=== PATIENT | male | born 1955 | race Hispanic/Latino ===

== ENCOUNTER 2018-01-09 05:59 | Day surgery (SDC) | payer BC ==
[2017-12-31 10:49] VITALS: BMI 28.4
--- NOTE | 2018-01-09 06:51 | CP.PCM.PN ---
Subjective - Date & Time of Evaluation Date of Evaluation: 01/09/18 Time of Evaluation: 06:46 - Subjective Subjective: Podiatry progress note for attending Dr. Alfonso: 62 y/o M patient with PMH of HTN seen and evaluated at the bedside preoperative for Left hAV and hammer toe correction surgery. Patient states that he has this problem in his foot since long time and it bothers him as his left great toe is overlapping the left 2nd toe. Patient is aware of the surgery. Patient confirmed his NPO status. Patient denies any recent F/N/V/C or SOB. Patient took his blood pressure pill today 4.30 am. PMH: HTN PSH: Hydrocele twice Allergies: Iodine, Penicillins Social Hx: Denies smoking, ETOH socially and denies illicit drug use. Objective - Vital Signs/Intake and Output Vital Signs (last 24 hours): Temp Pulse Resp BP Pulse Ox 97.7 F 86 18 153/93 H 95 01/09/18 06:40 01/09/18 06:40 01/09/18 06:40 01/09/18 06:40 01/09/18 06:40 - Constitutional Appears: Well, Non-toxic, No Acute Distress - Head Exam Head Exam: ATRAUMATIC, NORMOCEPHALIC - Extremities Exam Additional comments: Left LE focused exam: Vasc: DP/PT 2/4, Cap refill < 3 sec in all digits. Temp gradient warm to cool from proximal to distal. No edema. Neuro: Gross and protective sensations are intact. Derm: No open lesions, No clinical signs of infection. MSK: HAV deformity. HT from 2 to 5. Tailor's bunion. 2nd toe overlapping 1st toe. Muscle power intact 5/5 in all groups. - Neurological Exam Neurological Exam: Alert, Awake, Oriented x3 - Psychiatric Exam Psychiatric exam: Normal Affect, Normal Mood Assessment and Plan - Assessment and Plan (Free Text) Assessment: 62 y/o M patient seen and evaluated in the bedside preoperative for left HAV and HT correction surgery. Plan: Pt was seen and examined in SDS Pt NPO status was confirmed All pre-op testing and clearance in chart Pt has exhausted all conservative treatment at this time and is opting for surgical intervention Pt was explained procedure and post-operative course All pt's questions were answered to satisfaction No guarantees were made Pt understands all risks, benefits and complications of procedure Pt will follow-up with Dr. Alfonso within 1 week of surgery
[2018-01-09] MEDS ORDERED: Lidocaine 2% Inj (20ml) INFIL ONE (06:55)
[2018-01-09] MEDS ORDERED: Bupivacaine 0.5% 50 ML IJ ONE (06:55)
[2018-01-09] MEDS ORDERED: Clindamycin 600mg/50ml NS 600 MG/50 ML BAG IVPB ONE (06:55)
[2018-01-09] MEDS ORDERED: Succinylcholine 200 mg/10 ml Inj IV ONE (07:14)
[2018-01-09] MEDS ORDERED: ePHEDrine 50 mg/ml Inj ONE (07:14)
[2018-01-09] MEDS ORDERED: Rocuronium 10 mg/ml (5 ml) ONE (07:14)
[2018-01-09] MEDS ORDERED: Midazolam 2 MG/2 ML VIAL ONE ×2 (07:14→11:20)
[2018-01-09] MEDS ORDERED: Phenylephrine 10 mg/ml Inj ONE (07:14)
[2018-01-09] MEDS ORDERED: Propofol 10 mg/ml Inj (20 ML) ONE ×3 (07:14→11:53)
[2018-01-09] MEDS ORDERED: Sodium Chloride 0.9% 10 ML IV ONE (07:17)
[2018-01-09] MEDS ORDERED: Lactated Ringer's 1,000 ML IV ONE ×2 (07:50→08:43)
--- NOTE | 2018-01-09 08:19 | CP.SDSHP ---
Same Day Surgery H & P - History Proposed Procedure: Left HAV, Left 2nd HT correction Pre-Op Diagnosis: Left HAV, Left 2nd HT. - Previous Medical/Surgical History Cardiac: Hypertension Previous Surgical History: Hydrocele twice, renal stone surgery - Allergies Allergies: Allergies iodine Allergy (Intermediate, Verified 01/09/18 06:18) SWELLING Penicillins Allergy (Verified 01/09/18 06:18) RASH - Physical Exam Vital Signs: Vital Signs 01/09/18 01/09/18 06:40 06:46 Temperature 97.7 F Pulse Rate 86 86 Respiratory 18 Rate Blood Pressure 153/93 H O2 Sat by Pulse 95 Oximetry - {Optional Preform as Required} Integument: Other (Left HAV, Left HT 2-5> MMT 5/5 in all groups) - Impression Pt. Evaluated Today:Candidate for Anesthesia & Procedure: Yes - Date & Time Date: 01/09/18 Time: 07:10 Short Stay Discharge - Short Stay Discharge Admitting Diagnosis/Reason for Visit: M20.12,M20.42 Disposition: HOME/ ROUTINE Additional Instructions (Diet, Activity): -Patient in good/stable condition for discharge home -Pt to resume medications per medical reconciliation -Resume regular diet -Please keep dressing clean, dry, & intact to surgical site -Use plastic bag over bandage for showering -Wear post op shoe at all times when ambulating -Call clinic if you see signs of infection (redness, swelling, malodor) -Please make an appointment to see Dr. Alfonso in office/clinic within 1 week for post-op check Progress Note/Discharge Note with Instructions: - Patient evaluated bedside in recovery s/p Left HAV, L 2nd HT correction. - After surgical procedure patient in NAD. - (+) Void, (+) Appetite. - Capillary refill time <3s and NVS intact. - Patient denies complaints at this time. - Post operative instructions and plan of care explained to patient at length. - Patient. acknowledges verbal understanding. - Patient stable for DC per podiatric surgery.
[2018-01-09] MEDS: Bupivacaine HCl 0.5% PF (30 ml) Inj ONE ×2 (10:28→10:44)
[2018-01-09] MEDS ORDERED: Oxycodone/Acetaminophen 5/325 mg Tab PO PRN ×2 (10:57)
--- NOTE | 2018-01-09 11:02 | PCM.SURG1 ---
Surgeon's Initial Post Op Note - Surgeon's Notes Surgeon: Dr. Alfonso Director Of Religious Life: Dr.Lara Garcia PGY-3, Dr. Jonelle Martinez PGY-2 Type of Anesthesia: General LMA, Local Anesthesia Administered By: Dr. Good Pre-Operative Diagnosis: left foot hallux abductovalgus deformity, 2nd digit hammertoe deformity, plantarflexed 2nd metatarsal Operative Findings: I: 15cc 2% Lidocaine plain pre-op, 10cc 0.5% Marcaine plain post-op. M: 2-0 Vicryl, 3-0Vicryl, 4-0 Vicryl, 4-0 Nylon, Arthrex 3-0 cannulated screw, [employer] BME staple, [employer] snap-off 2.0 screw Post-Operative Diagnosis: same Operation Performed: left foot Wilbert bunionectomy, Leandro osteotomy, Aura osteotomy of 2nd metatarsal, 2nd PIPJ arthrodesis with K-wire fixation Specimen/Specimens Removed: 1st metatarsal bone Estimated Blood Loss: EBL {In ML}: 15 Blood Products Given: N/A Drains Used: No Drains Post-Op Condition: Good Date of Surgery/Procedure: 01/09/18 Time of Surgery/Procedure: 11:04
[2018-01-09 14:18] VITALS: PULSE 80; RESP 18; TEMP 97
[2018-01-09 15:58] VITALS: BP 126/78; O2SAT 95
--- NOTE | 2018-01-12 14:38 | RAD ---
Date of service: 01/09/2018 PROCEDURE: Left Foot Radiographs. HISTORY: s/p bunion surgery COMPARISON: None. FINDINGS: BONES: Status post arthrodesis with a solitary wire traversing the entire left 2nd digit as a as well as the head of the 2nd metatarsal bone through the 2nd metatarsal phalangeal joint. Further, patient status post bunionectomy with solitary screw stabilizing distal 1st metatarsal osteotomy. Solitary staple stabilizes osteotomy at the proximal phalanx 1st digit. JOINTS: Limited degenerative sclerosis seen throughout the interphalangeal joints of the digits diffusely with arthrodesis as discussed above. No subluxation or dislocation appreciable. SOFT TISSUES: Emphysematous changes are identified compatible postoperative change at the forefoot and midfoot. OTHER FINDINGS: None. IMPRESSION: Postop changes seen related to the great toe and 1st metatarsal bone as well as left 2nd digit and 2nd metatarsal bone with postoperative soft tissue changes as discussed above. Prior osteotomy with osteotomies related to the proximal phalanx great toe and 1st metatarsal bone as discussed above.
--- NOTE | 2018-01-12 22:05 | OP ---
PROCEDURE DATE: 01/09/2018 SURGEON: Blair Alfonso DPM. EXHAUST AND MUFFLER FITTER: Kimberlyn Garcia DPM, PGY-3, Dr. Martinez, PGY-2. EDUCATION ADVISER: Dr. Good. ANESTHESIA: General. PREOPERATIVE DIAGNOSES: 1. Left foot painful hallux abductovalgus deformity. 2. Left foot elongated and plantar flexed second metatarsal. 3. Left foot second digit hammertoe deformity. POSTOPERATIVE DIAGNOSES: 1. Left foot painful hallux abductovalgus deformity. 2. Left foot elongated and plantar flexed second metatarsal. 3. Left foot second digit hammertoe deformity. PROCEDURES: 1. Left foot bunionectomy with screw and staple fixation. 2. Left foot second metatarsal decompression osteotomy with screw fixation. 3. Left foot second digit arthroplasty with K-wire fixation. INDICATIONS: The patient is a 62-year-old male with the above mentioned diagnosis. The patient has exhausted multiple forms of conservative treatment at this time and now request surgical intervention. The patient signed the consent. After careful explanation of risks, benefits, complications and alternatives for surgical procedure. No guarantees were given nor implied. N.p.o. status was confirmed prior to bringing the patient to the operating room. PREPARATION: The patient was brought into the operating room and placed on the operating room table in a supine position. Time-out was performed for identification of the correct patient and procedure. A well-padded pneumatic ankle tourniquet was placed to the patient's left ankle in a supramalleolar position. After induction of general anesthesia, the patient received a total of 15 mL of 2% lidocaine plain in a local block type fashion to the left foot. Once the local anesthesia was achieved, the left foot was then prepped and draped in normal sterile manner and the tourniquet was inflated to 250 mmHg and the procedure began. PROCEDURE #1: Attention was directed to the dorsal aspect of the first metatarsal head of the left foot where approximately 6 cm linear longitudinal incision was made medial and parallel to the tendon of the extensor hallucis longus involving the contour of the deformity. The incision was deepened into the subcutaneous tissue with care being taken to identify and retract all vital neurovascular structures. All bleeders were cauterized and ligated as necessary. Attention was then directed to the first interspace via the original incision where the tendon of the extensor hallucis brevis was identified and tenotomized. The conjoint tendon of the abductor hallucis muscle was then identified and transected at its attachment to the base of the proximal phalanx of the hallux. At this time, the lateral contracture on the hallux was noted to be reduced. At this time, an inverted outside capsulotomy was performed over the dorsal aspect of the first metatarsophalangeal joint. The periosteal and capsular structures were then carefully dissected free of their osseous attachments and retracted medially and laterally thus exposing the head of the first metatarsal into the operative site and the soft tissue operative site. Next, utilizing a sagittal bone saw the dorsal and medial prominence were resected and passed from the operative field. All rough edges were then smoothed down with a rasp. Attention was then directed to the medial aspect of the first metatarsal head where a through and through V-type osteotomy was created in the metaphyseal region of the bone utilizing a sagittal bone saw. The apex of the osteotomy pointed distally with the arm pointing proximal plantar and proximal dorsal. The dorsal arm was made longer to accommodate for internal fixation. Upon completion of the osteotomy, the capital fragment was distracted laterally into a more corrected position and impacted upon the first metatarsal shaft. At this time a 0.045 inch K-wire was driven from dorsal to plantar across the osteotomy site to serve as temporary fixation. Following sequential removal of the K-wire and following standard AO principles and technique, a 3 x 18 mm cortical screw was inserted and placed across the osteotomy site with excellent compression noted. Attention was then directed to the remaining medial bones which was resected utilizing a sagittal bone saw and passed from the operative field. Correction of the deformity was assessed at this time and noted to be excellent. The area of the original incision, the periosteal and capsular structures were reflected medially and laterally closing the base of the proximal phalanx to the operative site. Next, utilizing a sagittal bone saw, dorsal to plantar proximal osteotomy was created and the proximal phalanx of the left hallux and wedge of bone was resected and passed from the operative field. Following standard AO principals and technique a size 11 BME staple was inserted and placed across the osteotomy site with excellent compression noted. The surgical site was then copiously irrigated with sterile normal saline. The periosteal and capsular structures were then reapproximated using 2-0 and 3-0 Vicryl and the subcutaneous tissue was reapproximated with 4-0 Vicryl and the skin was reapproximated with 4-0 nylon. PROCEDURE #2: Attention was directed to the second metatarsophalangeal joint of the left foot where a lazy type S incision was created just lateral to the second metatarsophalangeal joint using #15 blade. This was done to avoid postoperative contracture overlying the second metatarsophalangeal joints and for minimal scar formation. The incision was carried down to the deeper planes with care being taken to identify and retract all vital neurovascular structures. All bleeders were cauterized and ligated as necessary. The incision was deepened down to the level of the long extensor tendon and the long extensor tendon was identified and retracted medially. Attention was drawn to the capsular and periosteal structures and a short periosteal and capsular incision was created being careful not to score the articular cartilage of the second metatarsal head. The periosteal tissue was reflected from this area to expose the head of the second metatarsal. At this time, with the use of the sagittal saw, a Y type osteotomy was created at the second metatarsal starting from the most proximal portion of the articular cartilage and the dorsal aspect of the second metatarsal and then an oblique cut staying parallel to the weightbearing surface was achieved through and through. The capital fragment was then pulled proximally and it was palpated and it was noted to be consistent with the normal . Using standard AO principles and technique, this osteotomy was permanently fixated using two 2 x 11 mm right medical cortical screws. The osteotomy was noted to be . The incision site was then copiously irrigated with sterile normal saline. PROCEDURE #3: Then, attention was directed to the second digit dorsally via the original incision overlying the second metatarsal was extended and sharp dissection was carried down through deep tissues with care being taken to identify and retract all vital and neurovascular structures. All bleeders were cauterized and ligated as necessary. At this time a transverse tenotomy and capsulotomy was performed to the proximal interphalangeal joint and the head of the proximal phalanx was then freed off its capsular and ligamentous attachments. Next, utilizing a sagittal bone saw, the head of the proximal phalanx was resected and passed from the operative field. Next, 0.045 inch K-wire was driven from the base of the middle phalanx exiting the distal aspect of the second digit. The K-wire was then retrograded proximally into the remaining aspect of the proximal phalanx and the head of the second metatarsal. Correction of the deformity was assessed at this time and noted to be excellent. The wound was then flushed with copious amounts of normal sterile saline. The subcutaneous tissue was reapproximated with 4-0 Vicryl and the skin was reapproximated with 4-0 nylon. Postoperative dressing included Xeroform, 4 x 4s, gauze, Calista and zay bandage. POSTOPERATIVE CONDITION: The patient tolerated the anesthesia and the procedure well and was escorted to the recovery room with vital signs stable and neurovascular status intact to the left lower extremity. The patient will follow up with Dr. Alfonso in his office on an outpatient basis. Kimberlyn Garcia DPM Blair Alfonso DPM
== END 2018-01-09 15:00 | disposition home or self-care (01) ==
LOC: H.OPSURG 05:59
PROVIDERS: ATTEND Podiatrist Foot & Ankle Surgery
DX: M20.12 Hallux valgus (acquired), left foot (principal); M20.42 Other hammer toe(s) (acquired), left foot; I10 Essential (primary) hypertension; Z88.0 Allergy status to penicillin; K21.9 Gastro-esophageal reflux disease without esophagitis; Z86.19 Personal history of other infectious and parasitic diseases
CPT/HCPCS: 28292; 28312; 73630; 88304; 97161; G8978; G8979; G8980; J0330; J2001; J2250; J2370; J2405; J2704; J3010; J7030; J7120